=== PATIENT | male | born 1990 | race Caucasian/White ===

== ENCOUNTER 2023-05-15 15:02 | Observation (INO) ==
--- NOTE | 2023-05-15 15:23 | Emergency Department Note ---
Impression & Plan RLQ abdominal pain, Leukocytosis, Acute dehydration ED Provider Note CHIEF COMPLAINT: Abdominal pain HISTORY OF PRESENTING ILLNESS: This 33-year-old male patient presents to the emergency department with his for evaluation of right-sided abdominal pain. The symptoms started this morning. The patient states that he has had a "high fever" but did not check it. Also having some nausea and vomiting. Had 3 episodes of diarrhea today. Denies any urinary symptoms. Denies any previous abdominal surgeries or abdominal problems. Denies hematochezia, melena, hematuria, hemoptysis, or hematemesis. He rates the pain as 8/10. He has not taken anything for the symptoms yet. Denies chest pain, but sometimes feels SOB from the pain. Denies cough or URI symptoms. No known ill contacts. Has not eaten or drank anything yet today. REVIEW OF SYSTEMS: See HPI for pertinent positives and pertinent negatives. ALLERGIES: Honey bees MEDICATIONS: Medical Marijuana PAST MEDICAL HISTORY: Denies pertinent past medical or pertinent past surgical history PHYSICAL EXAM: VITALS: Vitals are noted on the nurse's note and reviewed by myself. GENERAL: Non toxic, no acute distress, non-diaphoretic. SKIN: No rash to the abdomen. Capillary refill <2 sec. EYES: PERRLA. EOMI. Conjunctivae without injection, sclerae without icterus. NOSE: Patent without discharge. MOUTH: Mucous membranes moist. Uvula midline. Airway patent. Pharynx without erythema, edema, or exudate. NECK: Supple without nuchal rigidity. No lymphadenopathy. HEART: Regular rate and rhythm without murmurs gallops or rubs. LUNGS: Clear to auscultation bilaterally without wheezes, rales or rhonchi. No retractions or accessory muscle use. ABDOMEN: Positive bowel sounds x 4. Normal tympanic percussion. Soft, diffusely tender to palpation in the central abdomen with maximal tenderness to palpation in the right lower quadrant. No masses or organomegaly. Briseno sign negative. No CVA tenderness. Mild guarding without rebound tenderness or rigidity. : Permission to perform the exam. The patient's was in the room for the exam. The patient declined an additional dewer. Bilateral testicles are descended. No testicular tenderness to palpation. No obvious masses or lesions of the testicles. Normal cremasteric reflex. No obvious hernias appreciated. No penile lesions noted. MUSCULOSKELETAL: No gross musculoskeletal defects. NEURO: Patient was alert and oriented. No focal neurological deficits. DIFFERENTIAL DIAGNOSIS: Differential diagnosis includes hepatitis, pancreatitis, cholecystitis, cholelithiasis, appendicitis, kidney stone, pyelonephritis, UTI, gastritis, gastroenteritis, mesenteric adenitis, obstruction, constipation, hernia, abdominal abscess, perforation, diverticulitis, IBD, ischemic colitis, abdominal aortic aneurysm, testicular torsion, prostatitis, or others. ED COURSE AND MEDICAL DECISION MAKING: MEDICATIONS GIVEN: 2.5 L normal saline solution bolus, Toradol 10 mg IV, Tylenol 1000 mg IV, Zofran 4 mg IV. Morphine 4 mg IV and Zofran 4 mg IV. INTERPRETATION OF LABS: I interpreted the labs with full lab results as below in the lab section of this note. White blood cell count elevated at 15.70. Hemoglobin normal at 17. Platelet count normal at 211. Glucose elevated at 133 and total bilirubin 1.5, but CMP otherwise normal. Lipase normal. Urinalysis with 1+ protein, 3+ ketones, and 1+ bilirubin, but no evidence for infection. COVID, influenza, and RSV were negative. INTERPRETATION OF IMAGING: Imaging studies were interpreted by myself and read by radiology as per the imaging section of this note. CT scan of the abdomen and pelvis with IV contrast was negative for acute appendicitis or other acute abnormalities. Right upper quadrant ultrasound was negative for acute abnormalities. Chest x-ray was negative for acute cardiopulmonary etiology. CONSULTATIONS: Dr. Werner of general surgery. On-call hospitalist. MDM SUMMARY: The patient was seen during a time of extreme volume and extreme acuity. Nursing triage protocols were initiated with IV lock, labs, and/or imaging studies conducted by protocol in the triage area. The patient was initially evaluated in a triage room and then re-examined once they were taken back to an exam room. White blood cell count is elevated at 15.70. CMP as above without significant abnormalities. COVID, influenza, and RSV were negative. Chest x- ray negative. The patient had 3+ ketones in his urine and was given 2 L of normal saline solution bolus, but he felt like he needed a little bit more fluid and was given another 500 mL of normal saline solution with improvement per patient. The patient felt better after the IV Toradol, IV Tylenol, morphine, and Zofran. However, he continued with right lower quadrant abdominal pain and stated that he just did not feel right. Due to the patient's history, right lower quadrant abdominal pain, leukocytosis, and concern for possible appendicitis I discussed the case with Dr. Cristofer Foley of general surgery who was in the emergency department evaluating another patient. Dr. Werner evaluated the patient in the emergency department prior to review the results of the CT scan. Please refer to her dictation for further details. The CT scan of the abdomen and pelvis was negative for acute appendicitis or other acute abnormalities. Surgery recommended right upper quadrant ultrasound which was also negative. The patient's testicular exam was negative for acute abnormalities and I do not feel testicular ultrasound is needed at this time. I spoke with surgery again in regards to the patient's negative workup, but continued right lower quadrant abdominal pain along with his leukocytosis and "not feeling right." She recommended the patient be admitted by medicine for monitoring of his white blood cell count and to have serial abdominal exams to determine if repeat imaging or repeat surgical consult is needed. I spoke with the on-call hospitalist who agreed to admit the patient for further management. Please refer to their dictation. The patient's care was transferred in stable condition. Stool studies were ordered, but the patient was unable to give a stool sample while in the emergency department. DIAGNOSIS: RLQ abdominal pain Leukocytosis Dehydration Past Med/Surg History Social History Smoking Status: Never smoker Feels Safe at Home: Yes Allergies Allergies Allergy/AdvReac Type Severity Reaction Status Date / Time pollen extracts Allergy Intermediate ITCHY Verified 05/15/23 16:20 EYES, SNEEZING, CONGESTION bee venom protein (honey bee) Allergy Mild EXTRA Verified 05/15/23 16:20 SWELLING AT SITES Home Meds Home Medications Medication Instructions Recorded Confirmed Medical Marijuana 1 dose inhalation DIRECTED PRN 05/15/23 05/15/23 NEEDED PER PT Results & Data (ED) Vital Signs Vital Signs - 24 hr 05/15/23 15:04 05/15/23 17:02 05/15/23 19:19 Temperature 36.3 C L Temperature Source Oral Pulse Rate 82 Pulse Rate [Finger] 79 65 Respiratory Rate 18 18 20 Respiratory Effort / Characteristics Non-Labored Spontaneous Respiratory Depth Normal Respiratory Pattern Regular Blood Pressure 122/78 Blood Pressure [Left Arm] 122/66 99/59 L Blood Pressure Mean 92 Blood Pressure Mean [Left Arm] 84 72 Blood Pressure Position Sitting Pulse Oximetry 100 97 97 Oxygen Delivery Method Room Air Room Air Sepsis Recent Fever Within 48 Hours No Sepsis New/Unexplained Change in Mental Status N/A Sepsis Action Taken by Nursing No Action Required Laboratory Data 05/15/23 15:13 05/15/23 15:13 Lab Results 05/15/23 05/15/23 05/15/23 Range/Units 13:11 15:13 Unknown WBC 15.70 H (4.8-10.8) K/ul RBC 5.48 (4.70-6.10) M/uL Hgb 17.0 (14.0-18.0) g/dl Hct 46.3 (42.0-52.0) % MCV 84.5 (80.0-100.0) fL MCH 31.0 (25.0-34.0) pg MCHC 36.7 H (32.0-36.0) g/dL RDW Std Deviation 35.1 L (36.4-46.3) fL RDW Coeff of Kat 11.6 (11.5-14.5) % Plt Count 211 (130-400) K/uL MPV 9.0 L (9.4-12.4) fL Immature Gran % (Auto) 0.8 % Neut % (Auto) 93.4 % Lymph % (Auto) 2.1 % [place] % (Auto) 3.3 % Eos % (Auto) 0.1 % Baso % (Auto) 0.3 % Neut # (Auto) 14.67 H (1.40-6.50) K/uL Lymph # (Auto) 0.33 L (1.20-3.40) K/uL [place] # (Auto) 0.52 (0.11-0.59) K/uL Eos # (Auto) 0.01 (0.00-0.50) K/uL Baso # (Auto) 0.04 (0.00-0.20) K/uL Immature Gran # (Auto) 0.13 (0.01-0.20) K/uL Sodium 142 (136-145) mmol/L Potassium 3.5 (3.5-5.1) mmol/L Chloride 105 (98-107) mmol/L Carbon Dioxide 26 (21-32) mmol/L Anion Gap 11 (3-11) BUN 17 (6-23) mg/dl Creatinine 0.72 (0.6-1.4) mg/dl Est Cr Clr Drug Dosing 177.7 ml/min Est GFR ( Amer) 144.1 ml/min Est GFR (Non-Af Amer) 124.3 ml/min BUN/Creatinine Ratio 23.6 H (10-20) Glucose 133 H (70-99(Fasting)) mg/dl Calcium 9.5 (8.6-10.3) mg/dl Total Bilirubin 1.5 H (0.2-1.0) mg/dl AST 22 (13-39) U/L ALT 20 (7-52) U/L Alkaline Phosphatase 63 (34-104) U/L Total Protein 7.6 (6.0-8.3) gm/dl Albumin 4.9 (3.4-5.0) gm/dl Globulin 2.7 (2.5-4.0) gm/dl Albumin/Globulin Ratio 1.8 (0.9-2) Lipase 12 (11-82) U/L Urine Color Dark Yellow Urine Appearance Slightly Cloudy (Clear) Urine pH 5.5 (4.5-7.5) Ur Specific [place] >= 1.030 (1.000-1.030) Urine Protein 1+ H (Negative) Urine Glucose (UA) Negative (Negative) Urine Ketones 3+ H (Negative) Urine Blood Negative (Negative) Urine Nitrite Negative (Negative) Urine Bilirubin 1+ H (Negative) Urine Urobilinogen Negative (Negative) Ur Leukocyte Esterase Negative (Negative) Urine RBC 0-4 (0-4) /hpf Urine WBC 0-5 (0-5) /hpf Ur Epithelial Cells 0-5 (0-5) /lpf Urine Bacteria Negative (Negative) Hyaline Casts 0-5 (0-5) /lpf SARS-CoV-2 (PCR) NEGATIVE (Negative) Influenza Type A (PCR) Negative (Neg) Influenza Type B (PCR) Negative (Neg) RSV (RT-PCR) Negative (Neg) Administered Medications Discontinued Medications Sodium Chloride (Nss) 1,000 mls @ 999 mls/hr IV .Q1H1M TANVI Stop: 05/15/23 17:45 Last Infusion: 05/15/23 16:44 Dose: Infused Documented By: Admin: 05/15/23 15:40 Dose: 999 mls/hr Documented By: Infusion: 05/15/23 15:40 Dose: Infused Documented By: Admin: 05/15/23 15:40 Dose: 999 mls/hr Documented By: GINNY Acetaminophen (Ofirmev) 1,000 mg in 100 mls @ 400 mls/hr IV NOW STA Stop: 05/15/23 15:45 Last Infusion: 05/15/23 16:43 Dose: Infused Documented By: Infusion: 05/15/23 16:43 Dose: Infused Documented By: Admin: 05/15/23 15:40 Dose: 400 mls/hr Documented By: GINNY Sodium Chloride (Nss) 500 mls @ 999 mls/hr IV .Q31M ONE Stop: 05/15/23 18:22 Last Infusion: 05/15/23 18:47 Dose: Infused Documented By: Admin: 05/15/23 17:59 Dose: 999 mls/hr Documented By: AMADEO Ioversol (Optiray 320 500ml) 86 ml IV ONCE ONE Stop: 05/15/23 16:28 Last Admin: 05/15/23 16:27 Dose: 86 ml Documented By: JUSTYNA Ketorolac Tromethamine (Ketorolac Tromethamine 15 Mg/Ml Vial) 10 mg IV NOW ONE Stop: 05/15/23 15:32 Last Admin: 05/15/23 15:40 Dose: 10 mg Documented By: GINNY Morphine Sulfate (Morphine Sulfate 4 Mg/Ml 1 Ml Carp\\Vial) 4 mg IV NOW STA Stop: 05/15/23 17:53 Last Admin: 05/15/23 17:59 Dose: 4 mg Documented By: AMADEO Ondansetron HCl (Ondansetron Inj 2 Mg/Ml 2 Ml Vial) 4 mg IV NOW STA Stop: 05/15/23 15:46 Last Admin: 05/15/23 15:49 Dose: 4 mg Documented By: GINNY Ondansetron HCl (Ondansetron Inj 2 Mg/Ml 2 Ml Vial) Confirm Administered Dose 4 mg .ROUTE .STK-MED ONE Stop: 05/15/23 15:46 Last Admin: 05/15/23 15:49 Dose: Not Given Documented By: GINNY Ondansetron HCl (Ondansetron Home Pack 4mg Od Tab) 1 each PO NOW ONE Stop: 05/15/23 18:41 Last Admin: 05/15/23 18:59 Dose: Not Given Documented By: CHIKIS Ondansetron HCl (Ondansetron Inj 2 Mg/Ml 2 Ml Vial) 4 mg IV NOW STA Stop: 05/15/23 19:10 Last Admin: 05/15/23 19:18 Dose: 4 mg Documented By: CHIKIS Imaging Data Radiologist's Impression: Abdomen/Pelvis CT 05/15/23 15:31 CT abd pelvis IV con only CLINICAL HISTORY: RLQ abdominal pain TECHNIQUE: Helical axial images of the abdomen and pelvis were obtained and displayed. Automated dose lowering techniques and/or adjustment according to patient size were utilized for this exam. This exam was performed with intravenous contrast. CT DOSE: 1286.46 mGy.cm COMPARISON: None available at the time of this dictation. FINDINGS: Lower chest: No acute abnormality. Liver: Unremarkable. No focal lesions are seen. Gallbladder and biliary tree: No calcified gallstones. Normal caliber wall. No intra- or extrahepatic biliary ductal dilation. Pancreas: Unremarkable, no focal lesions. Spleen: Unremarkable. Adrenals: Unremarkable. Kidneys and ureters: Unremarkable. Bladder: Unremarkable. Reproductive organs: Unremarkable. Bowel: The appendix is normal. A hiatal hernia is seen. Lymph nodes Retroperitoneal: Unremarkable. Pelvic: Unremarkable. Mesenteric: Unremarkable. Peritoneum: Normal. Vessels: Unremarkable. Abdominal wall: Unremarkable. Bones: Unremarkable. IMPRESSION: No acute abnormality, in particular the appendix is unremarkable. ACT 112: Negative or not required by law. Electronically signed by: Triston Mathias M.D. 05/15/2023 4:54 PM Gallbladder Ultrasound 05/15/23 16:59 US gallbladder CLINICAL HISTORY: RUQ abdominal pain, leukocytosis TECHNIQUE: Multiple real-time sonographic images of the right upper quadrant were obtained. Comparison: Comparison is made to CT abdomen pelvis 05/15/2023 FINDINGS: The liver is diffusely homogenous with normal contour and echogenicity. No focal mass lesions are seen. No intrahepatic ductal dilatation is seen. No gallstones or sludge are identified within the gallbladder. The gallbladder wall is not thickened. There is no pericholecystic fluid present. A sonographic Briseno's sign was not elicited by the bargain table clerk. The common duct measures 0.5 cm in diameter at the level of the hepatic artery. The visualized portions of the pancreas appear normal. The right kidney shows normal echogenicity, cortical thickness and renal contour. The right kidney shows no evidence of hydronephrosis or mass. No ascites or free fluid is seen in Leiva's pouch. IMPRESSION: Unremarkable right upper quadrant ultrasound. ACT 112: Negative or not required by law. Electronically signed by: Triston Mathias M.D. 05/15/2023 5:47 PM Chest X-Ray 05/15/23 17:01 XR chest 1V portable CLINICAL HISTORY: Sob, fever TECHNIQUE: Single frontal radiograph of the chest was obtained. Comparison: None available at the time of this dictation. FINDINGS: No lines and tubes are seen. The cardiomediastinal silhouette is normal. The lungs are clear. No evidence of pleural effusion or pneumothorax. IMPRESSION: No acute abnormalities and in particular no radiographic evidence of pneumonia. ACT 112: Negative or not required by law. Electronically signed by: Triston Mathias M.D. 05/15/2023 5:31 PM Discharge Plan Visit Data Chief Complaint: Abdominal Pain Stated Complaint: STOMACHE PAIN ED Provider: Renzo Stahl ED Midlevel Provider: Dorothy Hernandez Discharge Problem: RLQ abdominal pain, Leukocytosis, Acute dehydration Patient Disposition: Admitted As Inpatient Condition: Good Discharge Instructions Interventions: ED Discharge Assessment Last Done: 05/15/23 21:23 Forms Stand Alone Forms: [employer] Prescriptions Prescriptions: No Action Medical Marijuana 1 dose inhalation DIRECTED PRN (Reason: NEEDED PER PT) Referrals Referrals: Scott Maldonado MD [Primary Care Provider] - Discharge Problem: Leukocytosis Qualifiers: Leukocytosis type: unspecified Qualified Code(s): D72.829 - Elevated white blood cell count, unspecified
[2023-05-15 15:24] LABS: Appearance Urine Slightly Cloudy (Clear); Bilirubin Urine 1+ (Negative); Blood Urine Negative (Negative); Glucose Urine UA Negative (Negative); Ketones Urine 3+ (Negative); Leukocyte Esterase Urine Negative (Negative); Nitrite Urine Negative (Negative); Protein Urine 1+ (Negative); Specific Gravity Urine >= 1.030 (1.000-1.030); Urobilinogen Urine Negative (Negative); pH Urine 5.5 (4.5-7.5)
[2023-05-15 15:26] LABS: Color Urine Dark Yellow
[2023-05-15 15:29] LABS: Hematocrit (blood only) 46.3 % (42.0-52.0); Mean Corpuscular Hgb Conc 36.7 g/dL (32.0-36.0); Mean Corpuscular Volume 84.5 fL (80.0-100.0); Platelet Count 211 K/uL (130-400); RDW Coefficient of Variation 11.6 % (11.5-14.5); RDW Standard Deviation 35.1 fL (36.4-46.3); Red Blood Count 5.48 M/uL (4.70-6.10)
[2023-05-15 15:40] LABS: Bacteria Urine Negative (Negative); Epithelial Cell Urine 0-5 /lpf (0-5); Hyaline Casts Urine 0-5 /lpf (0-5); RBC Urine 0-4 /hpf (0-4); WBC Urine 0-5 /hpf (0-5)
[2023-05-15] MEDS: KETOROLAC TROMETHAMINE 15 MG/ML VIAL IV ONE (15:40)
[2023-05-15] MEDS: SODIUM CHLORIDE 0.9% 1,000 ML IV SCH (15:40)
[2023-05-15] MEDS: ACETAMINOPHEN 1,000 MG/100 ML VIAL IV STA (15:40)
[2023-05-15 15:47] LABS: Albumin Globulin Ratio 1.8 (0.9-2); Albumin Level 4.9 gm/dl (3.4-5.0); BUN Creatinine Ratio 23.6 (10-20); Bilirubin,Total 1.5 mg/dl (0.2-1.0); Calcium 9.5 mg/dl (8.6-10.3); Creatinine Clr Calc Pharmacy 177.7 ml/min; Est GFR (African American) 144.1 ml/min; Est GFR (Non-African American) 124.3 ml/min; Globulin 2.7 gm/dl (2.5-4.0); Potassium 3.5 mmol/L (3.5-5.1); Total Protein 7.6 gm/dl (6.0-8.3)
[2023-05-15] MEDS: ONDANSETRON INJ 2 MG/ML 2 ML VIAL IV STA ×2 (15:49→19:18)
[2023-05-15] MEDS: ONDANSETRON INJ 2 MG/ML 2 ML VIAL ONE (15:49)
[2023-05-15 15:54] LABS: Basophils # (auto) 0.04 K/uL (0.00-0.20); Basophils % (auto) 0.3 %; Eosinophils # (auto) 0.01 K/uL (0.00-0.50); Eosinophils % (auto) 0.1 %; Immature Granulocytes # (auto) 0.13 K/uL (0.01-0.20); Immature Granulocytes % (auto) 0.8 %; Lymphocytes # (auto) 0.33 K/uL (1.20-3.40); Lymphocytes % (auto) 2.1 %; Monocytes # (auto) 0.52 K/uL (0.11-0.59); Monocytes % (auto) 3.3 %; Neutrophils # (auto) 14.67 K/uL (1.40-6.50); Neutrophils % (auto) 93.4 %
[2023-05-15 16:01] LABS: Influenza A virus by PCR Negative (Neg); Influenza B virus by PCR Negative (Neg); RSV by PCR Negative (Neg); SARS CoV2 RNA(COVID-19) Ceph NEGATIVE (Negative)
[2023-05-15] MEDS: OPTIRAY 320 500ml IV ONE (16:27)
--- NOTE | 2023-05-15 16:49 | Surgery Consultation ---
Date of Consultation May 15, 2023 Assessment & Plan (1) Abdominal pain: Radiating to right lower quadrant (2) Vomiting: (3) Diarrhea: Plan No evidence for acute appendicitis on CT of the abdomen and pelvis or any other acute etiology to explain the patient's current symptoms. May consider a right upper quadrant ultrasound to further evaluate the gallbladder. If right upper quadrant ultrasound is negative, admit patient to medicine for observation with continued supportive care and repeat labs in the a.m. to monitor for resolution of leukocytosis. Would also obtain stool studies. Would keep the patient n.p.o. overnight if admission will be initiated. If the patient is no longer having nausea and vomiting by the a.m. may try to start on clear liquids and then advance as tolerated and follow-up with his PCP. History of Present Illness Reason for Consultation: Abdominal pain Attending Physician: Dr. Ruby Foley History of Present Illness Enmanuel is a 33-year-old male who presented to the emergency department with centralized to slightly right upper quadrant abdominal pain that began early this morning. He says he has had vomiting associated with this pain that was initially frothy and then turned bilious and appeared green along with nonbloody diarrhea. Episodes of vomiting have been a/w fevers and chills. Throughout the day he says this pain began to radiate to the right lower quadrant but has primarily remained in the mid to upper aspect of the abdomen. Miguel A says he has never had anything like this in the past although does recall having some GI upset during an episode of COVID 1 year ago. He initially attributed the abdominal pain due to an old sports hernia injury that was in similar location but noted that this pain felt quite different. In the ED he is afebrile and hemodynamically stable. He has a leukocytosis of 15,000, SARSCOV2 negative. CT A/P reveals no acute intra-abdominal findings. Particularly, negative for acute appendicitis and the gallbladder appears normal on CT with no calculi. At the time of my examination the patient stated he did feel better with IVF. Allergies Allergy/AdvReac Type Severity Reaction Status Date / Time pollen extracts Allergy Intermediate ITCHY Verified 05/15/23 16:20 EYES, SNEEZING, CONGESTION bee venom protein (honey bee) Allergy Mild EXTRA Verified 05/15/23 16:20 SWELLING AT SITES Home Medications Medication Instructions Recorded Confirmed Type Medical Marijuana 1 dose inhalation DIRECTED PRN 05/15/23 05/15/23 History NEEDED PER PT Patient History Social History Smoking Status: Never smoker Feels Safe at Home: Yes Review of Systems Constitutional: + fever, + chills, + sweats and + anorex ia Admits to nasal congestion for the past 2 weeks Respiratory: + dyspnea (Although thinks this may be s econdary to abdominal pain); no cough, no chest congestion and no wheezing Genitourinary: no dysuria, no difficulty urinating, no urinary frequency or no urinary incontinence Physical Exam Constitutional: average body habitus and healthy appearing; not ill appearing, not in distress and not diaphoretic Respiratory: normal respiratory effort; no respiratory distress, no labored breathing and does not use accessory muscles Cardiovascular: Rate/Rhythm: regular rate; not tachycardic Gastrointestinal (Abdomen): Abdomen is soft. Nondistended Mid to right upper quadrant tenderness to palpation Mild TTP at RLQ There is a negative Rovsing sign and a negative psoas sign Results & Data Vital Signs (Past 12 Hours) Vital Signs Temp Pulse Resp BP Pulse Ox O2 Del Method 05/15/23 15:04 36.3 C L 82 18 122/78 100 Room Air Laboratory Results WBC 15,000 SARS Cov-2 negative by PCR Diagnostic Findings CT a/P: FINDINGS: Lower chest: No acute abnormality. Liver: Unremarkable. No focal lesions are seen. Gallbladder and biliary tree: No calcified gallstones. Normal caliber wall. No intra- or extrahepatic biliary ductal dilation. Pancreas: Unremarkable, no focal lesions. Spleen: Unremarkable. Adrenals: Unremarkable. Kidneys and ureters: Unremarkable. Bladder: Unremarkable. Reproductive organs: Unremarkable. Bowel: The appendix is normal. A hiatal hernia is seen. Lymph nodes Retroperitoneal: Unremarkable. Pelvic: Unremarkable. Mesenteric: Unremarkable. Peritoneum: Normal. Vessels: Unremarkable. Abdominal wall: Unremarkable. Bones: Unremarkable. IMPRESSION: No acute abnormality, in particular the appendix is unremarkable. ACT 112: Negative or not required by law. Electronically signed by: Triston Mathias M.D. 05/15/2023 4:54 PM PG Care Time/CCT Total # of Minutes Spent Total Time Spent with Patient: Total time spent is greater than 50% in coordination of care (as documented) at patient's floor/unit and/or counseling patient: [place] [address] OFFICE CONSULT LVL M Patient Type New History Detailed Exam Expanded Problem Focused Medical Decision Making Low Complexity Diagnoses Right upper quadrant abdominal pain R10.11 Abdominal location: right upper quadrant Vomiting R11.10 Vomiting type: bilious vomiting Diarrhea, unspecified type R19.7 Diarrhea type: unspecified type (1) Abdominal pain Abdominal location: right upper quadrant Qualified Code(s): R10.11 - Right upper quadrant pain (2) Vomiting Vomiting type: bilious vomiting (3) Diarrhea Diarrhea type: unspecified type Qualified Code(s): R19.7 - Diarrhea, unspecified
--- NOTE | 2023-05-15 16:55 | CT Scan Report ---
CT abd pelvis IV con only CLINICAL HISTORY: RLQ abdominal pain TECHNIQUE: Helical axial images of the abdomen and pelvis were obtained and displayed. Automated dose lowering techniques and/or adjustment according to patient size were utilized for this exam. This e xam was performed with intravenous contrast. CT DOSE: 1286.46 mGy.cm COMPARISON: None available at the time of this dictation. FINDINGS: Lower chest: No acute abnormality. Liver: Unremarkable. No focal lesions are seen. Gallbladder and biliary tree: No calcified gallstones. Normal caliber wall. No intra- or extrahepatic biliary ductal dilation. Pancreas: Unremarkable, no focal lesions. Spleen: Unremarkable. Adrenals: Unremarkable. Kidneys and ureters: Unremarkable. Bladder: Unremarkable. Reproductive organs: Unremarkable. Bowel: The appendix is normal. A hiatal hernia is seen. Lymph nodes Retroperitoneal: Unremarkable. Pelvic: Unremarkable. Mesenteric: Unremarkable. Peritoneum: Normal. Vessels: Unremarkable. Abdominal wall: Unremarkable. Bones: Unremarkable. IMPRESSION: No acute abnormality, in particular the appendix is unremarkable. ACT 112: Negative or not required by law. Electronically signed by: Triston Mathias M.D. 05/15/2023 4:54 PM
--- NOTE | 2023-05-15 17:33 | XRay Report ---
XR chest 1V portable CLINICAL HISTORY: Sob, fever TECHNIQUE: Single frontal radiograph of the chest was obtained. Comparison: None available at the time of this dictation. FINDINGS: No lines and tubes are seen. The cardiomediastinal silhouette is normal. The lungs are clear. No evid ence of pleural effusion or pneumothorax. IMPRESSION: No acute abnormalities and in particular no radiographic evidence of pneumonia. ACT 112: Negative or not required by law. Electronically signed by: Triston Mathias M.D. 05/15/2023 5:31 PM
--- NOTE | 2023-05-15 17:48 | Ultrasound Report ---
US gallbladder CLINICAL HISTORY: RUQ abdominal pain, leukocytosis TECHNIQUE: Multiple real-time sonographic images of the right upper quadrant were obtained. Comparison: Comparison is made to CT abdomen pelvis 05/15/2023 FINDINGS: The liver is diffusely homogenous with normal contour and echogenicity. No focal mass lesions are see n. No intrahepatic ductal dilatation is seen. No gallstones or sludge are identified within the g allbladder. The gallbladder wall is not thickened. There is no pericholecystic fluid present. A sonog raphic Briseno's sign was not elicited by the telephone operator. The common duct measures 0.5 cm in diamet er at the level of the hepatic artery. The visualized portions of the pancreas appear normal. The right kidney shows normal echogenicity, cortical thickness and renal contour. The right kidney sh ows no evidence of hydronephrosis or mass. No ascites or free fluid is seen in Leiva's pouch. IMPRESSION: Unremarkable right upper quadrant ultrasound. ACT 112: Negative or not required by law. Electronically signed by: Triston Mathias M.D. 05/15/2023 5:47 PM
[2023-05-15] MEDS: SODIUM CHLORIDE 0.9% 500 ML IV ONE (17:59)
[2023-05-15] MEDS: MoRPHine SULFATE 4 MG/ML 1 ML CARP\\VIAL IV STA (17:59)
[2023-05-15] MEDS: ONDANSETRON HOME PACK 4MG OD TAB PO ONE (18:59)
--- OUTSIDE RECORDS SUMMARY | 2023-05-15 19:20 | External Medical Summary | Summary of Care ---
Author Name Unknown Organization [facility] Address [address] [place] [address] Phone [phone] Care Team Providers Care Molecular Physicist Name Role Phone Neto Yoder MD Primary Care Provider [phone] Reason for Visit * Reason Onset Date Comments Appointment 04/17/2023 Encounter Details Date Type Department Care Team ([facility] st Contact Info) Description 04/17/2023 Telephone [address] [facility] ([place], [place]) [place] [address] Socrates Cabrera CRNP [address] [facility] [place] [address] Appointment Allergies Active Allergy Reactions Criticality Noted Date Comments Bee Stings 12/21/1997 swelling/breathing problems documented as of this encounter (statuses as of 04/17/2023) Medications Medication Sig Dispensed Refills Start Date End Date Status MULTIVITAMINS PO TABS 1 daily 0 Act colby Lidocaine Viscous HCl 2 % Mouth/Throat Solution Swish and spit 4x a day as needed for sore throat 100 mL 0 09/18/2022 Active documented as of this encounter (statuses as of 04/17/2023) Active Problems Problem Noted Date Diagnosed Date Overweight (BMI 25.0-29.9) 06/21/2022 Medical marijuana use 06/21/2022 JEFFERY (generalized anxiety disorder) 01/10/2020 documented as of this encounter (statuses as of 04/17/2023) Resolved Problems Problem Noted Date Diagnosed Date Resolved Date History of IBS 12/28/2017 02/10/2019 Spermatocele of epididymis, single 12/28/2017 02/10/2019 Other allergic rhinitis 03/08/200410/06 Overview: ICD-10 update of inactive term documented as of this encounter (statuses as of 04/17/2023) Immunizations Name Administration Dates Next Due H1N1 2009 Influenza, IM 2009 HEP A - Hepatitis A (Adult > 18 yrs) 12/17/2012 HPV Vaccine, 4-Valent 12/17/2012 HPV Vaccine, 9-Valent 09/19/2017,08/22/2016 Hep A - Hepatitis A (ped/adole, 1-18 Yrs) 2005 Meningococcal Conjugate Vaccine (Menactra/Menveo ) 12/17/2012 PPD 03/14/2018 Seasonal Influenza, PF, 6 M & above, IM , (FluLaval or Fluzone) 01/28/2020 Seasonal Influenza, Split, IIV3, With Preserve, Inj 03/20/2008 TDAP (age 10 and older)(Boostrix) 08/05/2015 TDAP (age 11 and older)(Adacel) 11/22/2005 documented as of this encounter Social History Tobacco Use Types Packs/Day Years Used Date Smoking Tobacco: Never Smokeless Tobacco: Never Alcohol Use Standard Drinks/Week Comments Yes 0 (1 standard drink = 0.6 oz pur e alcohol) occasionally PHQ-2 Answer Date Recorded PHQ-2 Score 2 02/07/2019 Sex and Gender Information Value Date Recorded Sex Assigned at Not on file Gender Identity Not on file Sexual Orientation Not on file Job Start Date Occupation Industry Not on file Not on file Not on file documented as of this encounter Miscellaneous Notes * Telephone Encounter - Meliza Ramírez OSA - 04/17/2023 10:06 AM EST Lmom to call back or use portal to schedule with Provider Rick documented in this encounter Plan of Treatment Health Maintenance Due Date Last Done Comments COVID-19 Vaccine (#1) 1992 Hepatitis C Screening 2010 Depression Screening 02/08/2020 02/07/2019, 09/20/19 18 Influenza Vaccine (FLU shot) (#1) 2023 01/28/2020, 2009, 03/20/2008 DTaP,Tdap,and Td Vaccines (8 - Td or Tdap) 08/04/2025 08/05/2015, 11/22/2005, 08/18/1996, Additional history exists Hepatitis B Completed 09/07/1998, 01/06, 11/24/1997 MENINGOCOCCAL (MENACTRA/MENVEO) Aged Out 12/17/2012 No longer eligible based on patient's age to complete this topic GARDASIL-HPV IMMUNIZATION SERIES Completed 09/19/2017, 08/22/2016, 12/17/2012 Pneumococcal Vaccine: Pediatrics (0 to 5 Years) and At-Risk Patients (6 to 64 Years) Aged Out No longer eligible based on patient's age to complete this topic documented as of this encounter Medical Devices Not on filedocumented as of this encounter Care Teams Molecular Physicist Relationship Specialty Start Date End Date Neto Yoder MD [address] [place] [address] PCP - General Family Medicine 07/16/18 documented as of this encounter
--- OUTSIDE RECORDS SUMMARY | 2023-05-15 19:20 | External Medical Summary | Summary of Care ---
Author Name Unknown Organization [facility] Address [address] [place] [address] Phone [phone] Care Team Providers Care Boot And Shoe Laborer Name Role Phone Neto Yoder MD Primary Care Provider [phone] Reason for Visit * Reason Comments Anxiety * - Authorized Specialty Diagnoses / Procedures Referred By Aubree t Referred To Contact Referral ID Status Reason Start Date Expiration Date V isits Requested Visits Authorized [id number] Authorized 07/05/2023 999 999 Encounter Details Date Type Department Care Team Description 11/28/2022 Office Visit [address] [place] [address] Socrates Cabrera CRNP [address] [place] [facility] [place] [address] Panic disorder* Allergies Active Allergy Reactions Severity Noted Date Comments Bee Stings 12/21/1997 swelling/breathing problems documented as of this encounter (statuses as of 11/28/2022) Medications Medication Sig Dispensed Refills Start Date End Date Status MULTIVITAMINS PO TABS 1 daily 0 Act colby Lidocaine Viscous HCl 2 % Mouth/Throat Solution Swish and spit 4x a day as needed for sore throat 100 mL 0 09/18/2022 Active documented as of this encounter (statuses as of 11/28/2022) Active Problems Problem Noted Date Overweight (BMI 25.0-29.9) 06/21/2022 Medical marijuana use 06/21/2022 JEFFERY (generalized anxiety disorder) 01/09 documented as of this encounter (statuses as of 11/28/2022) Resolved Problems Problem Noted Date Resolved Date History of IBS 12/28/2017 02/10/2019 Spermatocele of epididymis, single 12/28/2017 02/10/2019 Other allergic rhinitis 03/08/2004 11/01/19 17 Overview: ICD-10 update of inactive term documented as of this encounter (statuses as of 11/28/2022) Immunizations Name Administration Dates Next Due DTP Vaccine 1992,1992,1992 DTWP - Dipth/Tet/Whole Cell Pertussis 1992 ,1992,1992 DTaP - Dipth/Tet/Acell Pertussis 08/18/1996,10/05 H1N1 2009 Influenza, IM 2009 HEP A - Hepatitis A (Adult > 18 yrs) 12/17/2012 HPV Vaccine, 4-Valent 12/17/2012 HPV Vaccine, 9-Valent 09/19/2017,08/22/2016 Haemophilus B (HIB) 10/17/1993, 3,1992,06/29 Hep A - Hepatitis A (ped/ado le, 1-18 Yrs) 11/22/2005 Hepatitis B, 0-19 yrs 09/07/1998,02/01/1998,11/05 MMR - Measles/Mumps/Rubella Vaccine 08/18/1996,0 10/17/1993 Meningococcal Conjugate Vacc ine (Menactra/Menveo) 12/17/2012 OPV - Polio Virus Vaccine (Oral) 997,10/17/1993,1992,06/29 PPD 03/14/2018,03/16/1993 Seasonal Influenza, Quadriva lent, No Preserve, 6 Mons & Above, IM 01/28/2020 Seasonal Influenza, Split, I IV3, With Preserve, Inj 03/20/2008 TDAP (age 10 and older)(Boostrix) 08/05/2015 TDAP (age 11 and older)(Adacel) 11/22/2005 documented as of this encounter Social History Tobacco Use Types Packs/Day Years Used Date Smoking Tobacco: Never Smokeless Tobacco: Never Alcohol Use Standard Drinks/Week Comments Yes 0 (1 standard drink = 0.6 oz pur e alcohol) occasionally Sex Assigned at Date Recorded Not on file Job Start Date Occupation Industry Not on file Not on file Not on file documented as of this encounter Progress Notes * DANYELLE Araya - 11/28/2022 9:31 AM EDT Patient Location: CLINIC PSYCHOTHERAPY & MEDICATION MANAGEMENT RETURN VISIT NOTE Psychiatry, [facility] [address] [place] [address] 11/28/2022 Enmanuel Pablo CHIEF COMPLAINT: Anxiety INTERVAL HISTORY: Enmanuel Pablo is a 32 year old male presenting today for a follow-up appointment. He is interested in in discussing anger, frustration, stemming from expectations or preconceived notions of what he expects/wants vs what is happening, and why. May contribute to a general sense of unease / frustration. Exploring reflexive reactions to situations vs re-framing and working developing a different mindset or response to situations. Exploring aspects of control, and how a sense of control is both psychologically healthy but not realistic in many situations. Strongly identifies with feeling overly active and compelled to do things, as if driven by a motor as would be worded in adult ADHD questionnaire. He did not bring this up himself, but did liken his restlessness as if the "low hum of a motor." MEDICATION SIDE EFFECTS: n/a OBJECTIVE DATA: COLUMBIA-SUICIDE SEVERITY RATING SCALE: - Have you ever wished that you were , or not alive anymore?denies - Have you actually had thoughts about killing yourself?denies - Have you been thinking about how you might do this?denies - Have you had these thoughts and had some intention of acting on them?denies - Have you started to work out or worked out the details of how to kill yourself?denies - Do you intend to carry out this plan?denies - Have you done anything, started to do anything, or prepared to do anything to end your life?denies Low Risk: Reviewed a crisis plan with patient including calling the suicide hotline, calling their local crisis number, using the crisis text line, or calling the department of psychiatry phone number. Discussed risks/protective factors and reasons for living. ROS EXAM: Negative except as described above SUBSTANCE USE:Medical cannabis daily for anxiety "it slows my brain down to the rest of reality around me" Alcohol 1-2 beers per week Denies otherwise RELEVANT CHANGES IN PAST PSYCHIATRIC, MEDICAL, FAMILY OR SOCIAL HX: As described above CURRENT MEDS: Current Outpatient Medications Medication Sig Dispense Refill MULTIVITAMINS PO TABS 1 daily Lidocaine Viscous HCl 2 % Mouth/Throat Solution Swish and spit 4x a day as needed for sore throat 100 mL 0 No current facility-administered medications for this visit. ALLERGIES: Review of patient's allergies indicates: Allergen Reactions Bee Stings swelling/breathing problems RECENT LABORATORY DATA: Parainfluenza Virus 2 + MENTAL STATUS EXAMINATION: Appearance:age-appropriate and casually dressed Muscle strength/tone and motor behavior:normal muscle strength and tone Gait and Station: no abnormalities noted and not tested Personal Presentation:candid and cooperative. Speech: normal, rate, tone and volume Mood:anxious and sad Affect: type - euthymic; range - full range; lability - no Associations:intact Thought Process:goal directed Abstract Reasoning: intact Thought Content:denies suicidal ideations, homicidal ideations, auditory hallucinations, visualhallucinations, delusions, impulsivity to act out or preoccupation with violence Orientation: alert and oriented to person, place, time and situation Recent and remote memory as evidenced by recall of recent circumstances and remote life events: intact Language as evidenced by ability to repeat phrase and name object: intact Fund of knowledge as evidenced by vocabulary and current/historical events: intact Attention span/concentration as evidenced by: ability to sustain attention to examiner - intact andfollowing conversation - intact Insight:good Judgment:good FORMULATION: Enmanuel Pablo is a 32 year old male with presenting symptoms ofadjustment disorder with anxious mood.Has long done well in interactions with neuro-divergent peers including ADHD/ASD and is interested in exploring these symptoms and others within himself. Several stressors/losses in the past few years including loss of both his best friend to suicide and his mother to cancer, and COVID stressors generally. Uses medical marijuana daily for anxiety. Denies previous psychiatric history including inpatient treatment or suicide attempt. 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 ASSESSMENT - DIAGNOSIS: -Panic Disorder PLAN: -Will continue to explore symptoms and any recommended treatments with further exploration at future appointments - Encourage outpatient therapy to further explore symptoms and appropriate coping strategies Crisis Planning: Enmanuel Pablo has been provided with Psychiatry emergency telephone numbers, including crisis number, text suicide hotline and suicide hotline. The crisis plan was reviewed and updated if necessary based on the information above. Side effects of the medication were explained, and the patient understands the risks and benefits of using the medication.Patient cautioned not to drive, operate heavy machinery, or participate in other tasks requiring full cognitive alertness until they know how new medications will affect them. Pt encouraged to keep all medications out of the reach of children. Psychoeducation was provided. Discussed risks, expected benefits, and potential adverse effects from these medications. The benefits outweigh the risks.The patient participated in the development of the treatment plan, verbalized understanding, voices no concerns and is agreeable to the treatment plan. Risk Assessment: Risk assessment was performed for Enmanuel Pablo. This is a patient being treated for chronic mental health conditions as characterized above; at the time of this visit, there wasno indication that this patient was either a risk to self, others, or gravely disabled by symptoms of a mental illness. At the time of this evaluation, there were enough protective factors in place and it was deemed safe to continue with treatment on a outpatient basis with return to clinic in the timeframe described above. Health Maintenance: Enmanuel Pablo was encouraged to keep up to date on regular health maintenance per her primary care provider. Encouraged to keep active in productive hobbies and exercise. Thishelps manage emotions, improve sleep, wellbeing and overall health. Pt was cautioned to not drink alcohol or use illicit drugs as these can make mood symptoms worse by blocking the effects of prescribed medications. Avoid tobacco, which contains nicotine. Limit caffeine use. Caffeine and Nicotine are stimulants that can cause difficulty with sleep. Lack of sleep can then worsen anxiety and depression. Return in 4 weeks or sooner as needed. Time Spent on Visit total: 30 minutes - including preparing to see the patient, reviewing history, performing evaluation, counseling/educating patient, ordering medications/tests, documenting clinical information. 25 minutes was spent on counseling including active listening, supportive therapy, self-care, and reflection Socrates Cabrera, MSN, SAND M[employer] OPERATOR C[employer] SAND, PMHNP- Nurse Practitioner - Outpatient Psychiatry [facility] - [place] 11/28/2022 documented in this encounter Plan of Treatment Upcoming Encounters Date Type Specialty Care Team Description 01/02/2023 Office Visit Psychiatry Socrates Cabrera CRNP [address] [place] [address] Health Maintenance Due Date Last Done Comments COVID-19 Vaccine (#1) 1992 Hepatitis C Screening 2010 Depression Screening, Annual for Pts 12 and Over 02/08/2020 02/07/2019, 09/19/2017 Influenza Vaccine (FLU shot) (#1) 2023 01/28/2020, [...] Not on filedocumented as of this encounter Visit Diagnoses Diagnosis Panic disorder- Primary Panic disorder without agoraphobia documented in this encounter Care Teams Boot And Shoe Laborer Relationship Specialty Start Date End Date Neto Yoder MD [address] [place] [address] PCP - General Family Medicine 07/16/18 documented as of this encounter
--- OUTSIDE RECORDS SUMMARY | 2023-05-15 19:20 | External Medical Summary | Summary of Care ---
Author Name Unknown Organization [facility] Address [address] [place] [address] Phone [phone] Care Team Providers Care Simplex Printer Installer Name Role Phone Neto Yoder MD Primary Care Provider [phone] Reason for Visit * Reason Comments Anxiety * - Authorized Specialty Diagnoses / Procedures Referred By Aubree t Referred To Contact Referral ID Status Reason Start Date Expiration Date V isits Requested Visits Authorized [id number] Authorized 07/05/2023 999 999 Encounter Details Date Type Department Care Team Description 01/02/2023 Office Visit [address] [place] [address] Socrates [facility]rera [facility] [address] [facility] [address] Panic disorder*; Major depressive disorder, recurrent episode, moderate (HCC) Allergies Active Allergy Reactions Severity Noted Date Comments Bee Stings 12/21/1997 swelling/breathing problems documented as of this encounter (statuses as of 01/02/2023) Medications Medication Sig Dispensed Refills Start Date End Date Status MULTIVITAMINS PO TABS 1 daily 0 Act colby Lidocaine Viscous HCl 2 % Mouth/Throat Solution Swish and spit 4x a day as needed for sore throat 100 mL 0 09/18/2022 Active documented as of this encounter (statuses as of 01/02/2023) Active Problems Problem Noted Date Overweight (BMI 25.0-29.9) 06/21/2022 Medical marijuana use 06/21/2022 JEFFERY (generalized anxiety disorder) 01/09 documented as of this encounter (statuses as of 01/02/2023) Resolved Problems Problem Noted Date Resolved Date History of IBS 12/28/2017 02/10/2019 Spermatocele of epididymis, single 12/28/2017 02/10/2019 Other allergic rhinitis 03/08/2004 11/01/19 17 Overview: ICD-10 update of inactive term documented as of this encounter (statuses as of 01/02/2023) Immunizations Name Administration Dates Next Due H1N1 2009 Influenza, IM 2009 HEP A - Hepatitis A (Adult > 18 yrs) 12/17/2012 HPV Vaccine, 4-Valent 12/17/2012 HPV Vaccine, 9-Valent 09/19/2017,08/22/2016 Hep A - Hepatitis A (ped/adole, 1-18 Yrs) 2005 Meningococcal Conjugate Vaccine (Menactra/Menveo ) 12/17/2012 PPD 03/14/2018 Seasonal Influenza, PF, 6 mo ns & Above, IM , (Flulaval) 01/28/2020 Seasonal Influenza, Split, IIV3, With Preserve, [...] encounter Progress Notes * DANYELLE Araya - 01/02/2023 9:33 AM EDT Patient Location: HOME. After connecting through [employer], patient was verified with two unique identifiers. Patient (or authorized legal goodwill representative) was then informed that this was a Telemedicine visit and being conducted confidentially over secure lines. Methods to assure confidentiality were taken. Patient acknowledged consent and understanding of privacy and security of the Telemedicine visit. The patient agreed to participate. PSYCHOTHERAPY & MEDICATION MANAGEMENT RETURN VISIT NOTE Psychiatry, [facility] [address] [place] [address] 01/02/2023 Enmanuel Pablo CHIEF COMPLAINT: Anxiety INTERVAL HISTORY: Enmanuel Pablo is a 32 year old male presenting today for a follow-up appointment. Pt discusses his repsonse to questions on the MDQ/JEFFERY questionnaires, stating for most of the symptoms in the questions he experiences them for more than half the days. Depressive Symptoms (SIGECAPS): - Sleep Disturbance: yes - both onset and frequent awakenings, vivid dreams "sometimes they're nightmares, but a lot of them are lucid" waking with "wave" of analyzing / overanalyzing, denies r/t trauma - Anhedonia: yes "it's like a constant struggle with that" relates this to struggling with transitions - Guilt or Hopelessness: yes - guilt, however "I constantly see hope.. I just get disappointed" - Decreased Energy: yes - Impaired Focus/Concentration: yes - Altered Appetite/Weight Changes: yes - decreased, often linked with anxiety - Psychomotor Changes: yes - slowed - Suicidal Thoughts: denies - Onset, Trajectory, Duration, Seasonal Component - Fall months, anniversaries of losses Elysia/Hypomania Symptoms: denies Obsessive-Compulsive Symptoms: unclear - multiple tangential / interconnected worries and thought processes, the process itself may be compulsive MEDICATION SIDE EFFECTS: n/a OBJECTIVE DATA: COLUMBIA-SUICIDE SEVERITY RATING SCALE: - Have you ever wished that you were , or not alive anymore? denies - Have you actually had thoughts about killing yourself? denies - Have you been thinking about how you might do this? denies - Have you had these thoughts and had some intention of acting on them? denies - Have you started to work out or worked out the details of how to kill yourself? denies - Do you intend to carry out this plan? denies - Have you done anything, started to do anything, or prepared to do anything to end your life? denies Low Risk: Reviewed a crisis plan with patient including calling the suicide hotline, calling their local crisis number, using the crisis text line, or calling the department of psychiatry phone number. Discussed risks/protective factors and reasons for living. ROS EXAM: Negative except as described above SUBSTANCE USE: Medical cannabis daily for anxiety "it slows my [...] Bee Stings swelling/breathing problems RECENT LABORATORY DATA: none MENTAL STATUS EXAMINATION: Appearance: age-appropriate and casually dressed Muscle strength/tone and motor behavior: normal muscle strength and tone Gait and Station: no abnormalities noted and not tested Personal Presentation: candid and cooperative. Speech: normal, rate, tone and volume Mood: anxious and sad Affect: type - euthymic; range - full range; lability - no Associations: intact Thought Process: goal directed Abstract Reasoning: intact Thought Content: denies suicidal ideations, homicidal ideations, auditory hallucinations, visual hallucinations, delusions, impulsivity to act out or preoccupation [...] examiner - intact andfollowing conversation - intact Insight: good Judgment: good FORMULATION: Enmanuel Pablo is a 32 year old male with presenting symptoms of adjustment disorder with anxious mood. Has long done well in interactions with neuro-divergent [...] he grew up in. ASSESSMENT - DIAGNOSIS: - Panic Disorder - MDR, moderate, with mixed features - Differential includes OCD PLAN: - Will continue to explore symptoms and any recommended [...] then worsen anxiety and depression. Return in 3 months or sooner as needed. Time Spent on Visit total: 30 minutes - including preparing to see the patient, reviewing history, performing evaluation, counseling/educating patient, ordering medications/tests, documenting clinical information. 25 minutes was spent on counseling including active listening, supportive therapy, self-care, and reflection Socrates Cabrera MSN, CRYSTALLOGRAPHER, PMHNP- Nurse Practitioner - Outpatient Psychiatry [facility] - [place] 01/02/2023 documented in this encounter Plan of Treatment [...] Panic disorder- Primary Panic disorder without agoraphobia Major depressive disorder, recurrent episode, moderate (HCC) Major depressive disorder, recurrent episode, moderate documented in this encounter Care Teams Simplex Printer Installer Relationship Specialty Start Date End Date Neto Yoder MD [address] [facility] [place] [address] PCP - General Family Medicine 07/16/18 documented as of this encounter
--- OUTSIDE RECORDS SUMMARY | 2023-05-15 19:20 | External Medical Summary | Summary of Care ---
Author Name Unknown Organization [facility] Address [address] [place] [address] Phone [phone] Care Team Providers Care Edm Operator Name Role Phone Neto Yoder MD Primary Care Provider [phone] Reason for Visit * Reason Comments Anxiety * - Authorized Specialty Diagnoses / Procedures Referred By Aubree t Referred To Contact Referral ID Status Reason Start Date Expiration Date V isits Requested Visits Authorized [id number] Authorized 07/05/2023 999 999 Encounter Details Date Type Department Care Team Description 11/28/2022 Office Visit [facility] [place] [address] Socrates Cabrera CRNP [address] [place] [address] Panic disorder* Allergies Active Allergy Reactions Severity [...] 11/28/2022) Immunizations Name Administration Dates Next Due H1N1 2009 Influenza, IM 2009 HEP A - Hepatitis A (Adult > 18 yrs) 12/17/2012 HPV Vaccine, 4-Valent 12/17/2012 HPV Vaccine, 9-Valent 09/19/2017,08/22/2016 Hep A - Hepatitis A (ped/adole, 1-18 Yrs) 2005 Meningococcal Conjugate Vaccine (Menactra/Menveo ) 12/17/2012 PPD 03/14/2018 Seasonal Influenza, Quadriva lent, No Preserve, 6 Mons & Above, IM 01/28/2020 Seasonal Influenza, Split, IIV3, With Preserve, [...] - 11/28/2022 9:31 AM EDT Patient Location: HOME. After connecting through televideo, patient was verified with two unique identifiers. Patient (or authorized legal civil rights representative) was then informed that this was a Telemedicine visit and being conducted confidentially over secure lines. Methods to assure confidentiality were taken. Patient acknowledged consent and understanding of privacy and security of the Telemedicine visit. The patient agreed to participate. PSYCHOTHERAPY & MEDICATION MANAGEMENT RETURN VISIT NOTE Psychiatry, [facility] [address] [place] [address] 11/28/2022 Enmanuel Pablo CHIEF COMPLAINT: Anxiety INTERVAL [...] therapy, self-care, and reflection Socrates Cabrera MSN, DANYELLE, PMHNP- Nurse Practitioner - Outpatient Psychiatry [facility] - [place] 11/28/2022 documented in this encounter Plan of Treatment Upcoming Encounters Date Type Specialty Care Team Description 01/02/2023 Office Visit Psychiatry Socrates Cabrera CRNP [address] [place] [address] Health Maintenance Due Date Last Done Comments [...] agoraphobia documented in this encounter Care Teams Edm Operator Relationship Specialty Start Date End Date Neto Yoder MD [address] [place] [address] PCP - General Family Medicine 07/16/18 documented as of this encounter
--- NOTE | 2023-05-15 20:31 | History & Physical Report ---
Date of Service May 15, 2023 Assessment & Plan (1) Abdominal pain: Plan: 33-year-old male with past medical history significant for generalized anxiety disorder, medical marijuana use, presents with right-sided abdominal pain starting today morning. Patient states he woke up around 6 AM with severe right-sided abdominal pain thought it will subside but it has been constant since then. Pain is anywhere from 6-9/10 in severity. Radiating to his right groin region. Associated with several episodes of nausea and vomitings and diarrhea. No blood in the vomiting or stools. Also had temperature. Having shaking chills. Has some headache. Has mild congestion and cough. No chest pain.Not able to take deep breath because of pain. Did not eat any outside food. Right-sided abdominal pain Leukocytosis Fever as per patient Having shaking chills CT abdomen pelvis okay Gallbladder ultrasound okay will follow stool studies Will keep him n.p.o. IV fluids IV antiemetics as needed IV pain meds as needed Follow repeat labs in a.m. Surgery consulted DVT prophylaxis SCDs Disposition Medical floor Full code History of Present Illness Chief Complaint: Right-sided abdominal pain Primary Care Provider: Scott Maldonado MD 33-year-old male with past medical history significant for generalized anxiety disorder, medical marijuana use, presents with right-sided abdominal pain starting today morning. Patient states he woke up around 6 AM with severe right-sided abdominal pain thought it will subside but it has been constant since then. Pain is anywhere from 6-9/10 in severity. Radiating to his right groin region. Associated with several episodes of nausea and vomitings and diarrhea. No blood in the vomiting or stools. Also had temperature. Having shaking chills. Has some headache. Has mild congestion and cough. No chest pain.Not able to take deep breath because of pain. Did not eat any outside food. Past medical history. As mentioned above Past surgical history. Colonoscopy. Right partial palmar fasciectomy. Right repair of extensor tendon. Social history. No smoking. Alcohol occasional. No drug use. Family history. Father has IBS. Sister has IBS. Allergies Allergy/AdvReac Type Severity Reaction Status Date / Time pollen extracts Allergy Intermediate ITCHY Verified 05/15/23 16:20 EYES, SNEEZING, CONGESTION bee venom protein (honey bee) Allergy Mild EXTRA Verified 05/15/23 16:20 SWELLING AT SITES Home Medications Medication Instructions Recorded Confirmed Type Medical Marijuana 1 dose inhalation DIRECTED PRN 05/15/23 05/15/23 History NEEDED PER PT Past Med/Surg History Social History Smoking Status: Never smoker Second Hand Exposure: No; Do You Dip or Chew Tobacco: No; Tobacco Cessation Education Requested by Patient: No Hx Alcohol Use: No Hx Substance Use: No Preferred Language: Belarusian Communication Ability: Effective Mds Rn Required: No Beliefs That Will Affect Care: None Current Living Situation: Spouse Other Information That Helps Us Care for You: No Feels Safe at Home: Yes Safety Concerns: Feels Safe At This Time Review of Systems Review of Systems: All systems reviewed & are unremarkable except as noted in HPI & below Physical Exam Physical Exam: General- Not in distress. Head- atraumatic Eyes- PERRL. ENT- oropharynx clear Neck- supple, no JVD. Lungs- clear to auscultation no wheezing or crackles. Heart- regular rhythm; no murmur, no gallop Abdomen- normal bowel sounds, soft, mild right sided discomfort no distension. Extremities- no pretibial edema, no erythema seen. Neuro- alert, oriented x 3; PERRL, no facial palsy; no dysarthria; moves extremities. Skin- warm & dry Results & Data Results & Data Vital Signs (Past 12 Hours) Vital Signs Temp Pulse Pulse Resp BP BP Pulse Ox 05/15/23 19:19 65 20 99/59 L 97 05/15/23 17:02 79 18 122/66 97 05/15/23 15:04 36.3 C L 82 18 122/78 100 O2 Del Method 05/15/23 19:19 Room Air 05/15/23 17:02 05/15/23 15:04 Room Air Diagnostic Findings Laboratory Results WBC 15.70 K/ul (4.8-10.8) H 05/15/23 15:13 RBC 5.48 M/uL (4.70-6.10) 05/15/23 15:13 Hgb 17.0 g/dl (14.0-18.0) 05/15/23 15:13 Hct 46.3 % (42.0-52.0) 05/15/23 15:13 MCV 84.5 fL (80.0-100.0) 05/15/23 15:13 MCH 31.0 pg (25.0-34.0) 05/15/23 15:13 MCHC 36.7 g/dL (32.0-36.0) H 05/15/23 15:13 RDW Std Deviation 35.1 fL (36.4-46.3) L 05/15/23 15:13 RDW Coeff of Kat 11.6 % (11.5-14.5) 05/15/23 15:13 Plt Count 211 K/uL (130-400) 05/15/23 15:13 MPV 9.0 fL (9.4-12.4) L 05/15/23 15:13 Immature Gran % (Auto) 0.8 % 05/15/23 15:13 Neut % (Auto) 93.4 % 05/15/23 15:13 Lymph % (Auto) 2.1 % 05/15/23 15:13 Mcdonald % (Auto) 3.3 % 05/15/23 15:13 Eos % (Auto) 0.1 % 05/15/23 15:13 Baso % (Auto) 0.3 % 05/15/23 15:13 Neut # (Auto) 14.67 K/uL (1.40-6.50) H 05/15/23 15:13 Lymph # (Auto) 0.33 K/uL (1.20-3.40) L 05/15/23 15:13 Mcdonald # (Auto) 0.52 K/uL (0.11-0.59) 05/15/23 15:13 Eos # (Auto) 0.01 K/uL (0.00-0.50) 05/15/23 15:13 Baso # (Auto) 0.04 K/uL (0.00-0.20) 05/15/23 15:13 Immature Gran # (Auto) 0.13 K/uL (0.01-0.20) 05/15/23 15:13 Sodium 142 mmol/L (136-145) 05/15/23 15:13 Potassium 3.5 mmol/L (3.5-5.1) 05/15/23 15:13 Chloride 105 mmol/L (98-107) 05/15/23 15:13 Carbon Dioxide 26 mmol/L (21-32) 05/15/23 15:13 Anion Gap 11 (3-11) 05/15/23 15:13 BUN 17 mg/dl (6-23) 05/15/23 15:13 Creatinine 0.72 mg/dl (0.6-1.4) 05/15/23 15:13 Est Cr Clr Drug Dosing 177.7 ml/min 05/15/23 15:13 Est GFR ( Amer) 144.1 ml/min 05/15/23 15:13 Est GFR (Non-Af Amer) 124.3 ml/min 05/15/23 15:13 BUN/Creatinine Ratio 23.6 (10-20) H 05/15/23 15:13 Glucose 133 mg/dl (70-99(Fasting)) H 05/15/23 15:13 Calcium 9.5 mg/dl (8.6-10.3) 05/15/23 15:13 Total Bilirubin 1.5 mg/dl (0.2-1.0) H 05/15/23 15:13 AST 22 U/L (13-39) 05/15/23 15:13 ALT 20 U/L (7-52) 05/15/23 15:13 Alkaline Phosphatase 63 U/L (34-104) 05/15/23 15:13 Total Protein 7.6 gm/dl (6.0-8.3) 05/15/23 15:13 Albumin 4.9 gm/dl (3.4-5.0) 05/15/23 15:13 Globulin 2.7 gm/dl (2.5-4.0) 05/15/23 15:13 Albumin/Globulin Ratio 1.8 (0.9-2) 05/15/23 15:13 Lipase 12 U/L (11-82) 05/15/23 15:13 Urine Color Dark Yellow 05/15/23 13:11 Urine Appearance Slightly Cloudy (Clear) 05/15/23 13:11 Urine pH 5.5 (4.5-7.5) 05/15/23 13:11 Ur Specific [place] >= 1.030 (1.000-1.030) 05/15/23 13:11 Urine Protein 1+ (Negative) H 05/15/23 13:11 Urine Glucose (UA) Negative (Negative) 05/15/23 13:11 Urine Ketones 3+ (Negative) H 05/15/23 13:11 Urine Blood Negative (Negative) 05/15/23 13:11 Urine Nitrite Negative (Negative) 05/15/23 13:11 Urine Bilirubin 1+ (Negative) H 05/15/23 13:11 Urine Urobilinogen Negative (Negative) 05/15/23 13:11 Ur Leukocyte Esterase Negative (Negative) 05/15/23 13:11 Urine RBC 0-4 /hpf (0-4) 05/15/23 13:11 Urine WBC 0-5 /hpf (0-5) 05/15/23 13:11 Ur Epithelial Cells 0-5 /lpf (0-5) 05/15/23 13:11 Urine Bacteria Negative (Negative) 05/15/23 13:11 Hyaline Casts 0-5 /lpf (0-5) 05/15/23 13:11 SARS-CoV-2 (PCR) NEGATIVE (Negative) 05/15/23 Unknown Influenza Type A (PCR) Negative (Neg) 05/15/23 Unknown Influenza Type B (PCR) Negative (Neg) 05/15/23 Unknown RSV (RT-PCR) Negative (Neg) 05/15/23 Unknown Impressions Abdomen/Pelvis CT 05/15/23 15:31 CT abd pelvis IV con only CLINICAL HISTORY: RLQ abdominal pain TECHNIQUE: Helical axial images of the abdomen and pelvis were obtained and displayed. Automated dose lowering techniques and/or adjustment according to patient size were utilized for this exam. This exam was performed with intravenous contrast. CT DOSE: 1286.46 mGy.cm COMPARISON: None available at the time of this dictation. FINDINGS: Lower chest: No acute abnormality. Liver: Unremarkable. No focal lesions are seen. Gallbladder and biliary tree: No calcified gallstones. Normal caliber wall. No intra- or extrahepatic biliary ductal dilation. Pancreas: Unremarkable, no focal lesions. Spleen: Unremarkable. Adrenals: Unremarkable. Kidneys and ureters: Unremarkable. Bladder: Unremarkable. Reproductive organs: Unremarkable. Bowel: The appendix is normal. A hiatal hernia is seen. Lymph nodes Retroperitoneal: Unremarkable. Pelvic: Unremarkable. Mesenteric: Unremarkable. Peritoneum: Normal. Vessels: Unremarkable. Abdominal wall: Unremarkable. Bones: Unremarkable. IMPRESSION: No acute abnormality, in particular the appendix is unremarkable. ACT 112: Negative or not required by law. Electronically signed by: Triston Mathias M.D. 05/15/2023 4:54 PM Gallbladder Ultrasound 05/15/23 16:59 US gallbladder CLINICAL HISTORY: RUQ abdominal pain, leukocytosis TECHNIQUE: Multiple real-time sonographic images of the right upper quadrant were obtained. Comparison: Comparison is made to CT abdomen pelvis 05/15/2023 FINDINGS: The liver is diffusely homogenous with normal contour and echogenicity. No focal mass lesions are seen. No intrahepatic ductal dilatation is seen. No gallstones or sludge are identified within the gallbladder. The gallbladder wall is not thickened. There is no pericholecystic fluid present. A sonographic Briseno's sign was not elicited by the brim edge trimmer. The common duct measures 0.5 cm in diameter at the level of the hepatic artery. The visualized portions of the pancreas appear normal. The right kidney shows normal echogenicity, cortical thickness and renal contour. The right kidney shows no evidence of hydronephrosis or mass. No ascites or free fluid is seen in Leiva's pouch. IMPRESSION: Unremarkable right upper quadrant ultrasound. ACT 112: Negative or not required by law. Electronically signed by: Triston Mathias M.D. 05/15/2023 5:47 PM Chest X-Ray 05/15/23 17:01 XR chest 1V portable CLINICAL HISTORY: Sob, fever TECHNIQUE: Single frontal radiograph of the chest was obtained. Comparison: None available at the time of this dictation. FINDINGS: No lines and tubes are seen. The cardiomediastinal silhouette is normal. The lungs are clear. No evidence of pleural effusion or pneumothorax. IMPRESSION: No acute abnormalities and in particular no radiographic evidence of pneumonia. ACT 112: Negative or not required by law. Electronically signed by: Triston Mathias M.D. 05/15/2023 5:31 PM Code Status & VTE Plan VTE Prophylaxis Plan VTE Prophylaxis will be ordered: Yes (1) Abdominal pain Abdominal location: right upper quadrant Qualified Code(s): R10.11 - Right upper quadrant pain
[2023-05-15] MEDS ORDERED: HYDROmorphone INJ 0.5 MG/0.5 ML SYR IV PRN (22:23)
[2023-05-15] MEDS ORDERED: ACETAMINOPHEN 1,000 MG/100 ML VIAL IV PRN (22:23)
[2023-05-15] MEDS ORDERED: ONDANSETRON INJ 2 MG/ML 2 ML VIAL IV PRN (22:23)
[2023-05-15] MEDS: D5W AND NSS 1,000 ML IV SCH (22:40)
[2023-05-16 05:40] LABS: Basophils # (auto) 0.03 K/uL (0.00-0.20); Basophils % (auto) 0.4 %; Eosinophils # (auto) 0.01 K/uL (0.00-0.50); Eosinophils % (auto) 0.1 %; Hematocrit (blood only) 37.7 % (42.0-52.0); Hemoglobin 13.2 g/dl (14.0-18.0); Immature Granulocytes # (auto) 0.05 K/uL (0.01-0.20); Immature Granulocytes % (auto) 0.6 %; Lymphocytes # (auto) 0.88 K/uL (1.20-3.40); Lymphocytes % (auto) 10.8 %; Mean Corpuscular Hemoglobin 30.3 pg (25.0-34.0); Mean Corpuscular Volume 86.7 fL (80.0-100.0); Mean Platelet Volume 8.8 fL (9.4-12.4); Monocytes # (auto) 0.69 K/uL (0.11-0.59); Monocytes % (auto) 8.5 %; Neutrophils # (auto) 6.49 K/uL (1.40-6.50); Neutrophils % (auto) 79.6 %; Platelet Count 148 K/uL (130-400); RDW Coefficient of Variation 11.7 % (11.5-14.5); RDW Standard Deviation 36.9 fL (36.4-46.3); Red Blood Count 4.35 M/uL (4.70-6.10); White Blood Count 8.15 K/ul (4.8-10.8)
[2023-05-16 05:51] LABS: BUN Creatinine Ratio 15.6 (10-20); Creatinine Clr Calc Pharmacy 166.1 ml/min; Est GFR (African American) 140.1 ml/min; Est GFR (Non-African American) 120.9 ml/min; Magnesium 1.4 mg/dl (1.7-2.4); Potassium 3.4 mmol/L (3.5-5.1)
[2023-05-16 07:52] LABS: Albumin Level 3.5 gm/dl (3.4-5.0); Bilirubin Direct 0.2 mg/dl (0-0.2); Bilirubin,Total 0.9 mg/dl (0.2-1.0); Total Protein 5.6 gm/dl (6.0-8.3)
--- NOTE | 2023-05-16 08:05 | Surgery Progress Note ---
Date of Service May 16, 2023 Assessment & Plan (1) Leukocytosis: (2) Abdominal pain: Plan: Overall feels improved, continues with slightly milder flulike symptoms and decreased rectus muscle achiness. Remains afebrile remains afebrile and leukocytosis has resolved remains afebrile and leukocytosis has resolved likely due to dehydration. Continue with supportive care. May have sips of water and ice chips this am and then may advance diet to full liquids as tolerated. Apply warm compresses to sore abdominal muscles at least 4 times per day. May use Ibuprofen to help with inflammation. Will f/u stool studies if they can be collected due to ongoing diarrhea which for now seems to have resolved. Will follow up in the am for changes. Admission and Anticipated Discharge Date Admission Date: May 15, 2023 Subjective Patient says he feels improved. He admits to generalized body aches, says he did have a small amount of dry heaving overnight and continues to have less severe intermittent shakes and chills. He admits to decreased soreness of the right rectus muscle extending from its attachment at the ribs to the pelvic bone. He says he is starting to feel more hungry and feels dehydrated. He admits to passing flatus. Physical Exam Constitutional: healthy appearing; not ill appearing, not in distress and not diaphoretic Afebrile Respiratory: normal respiratory effort; no respiratory distress, no labored breathing and does not use accessory muscles Cardiovascular: Rate/Rhythm: regular rate; not tachycardic Gastrointestinal (Abdomen): Minimal along the lateral border of the right rectus muscle extending from the right upper to right lower quadrant. Abdomen is soft and nondistended. Results & Data Vital Signs (Past 12 Hours) Vital Signs Temp Pulse Resp BP Pulse Ox O2 Del Method 05/16/23 07:49 37.2 C 62 16 107/70 95 Room Air 05/15/23 21:40 Room Air 05/15/23 21:40 36.7 C 70 18 115/63 98 Room Air Laboratory Results WBC: 8.15 H/H: 13.2/37.7 from PG Care Time/CCT Total # of Minutes Spent Total Time Spent with Patient: Total time spent is greater than 50% in coordination of care (as documented) at patient's floor/unit and/or counseling patient: Coding Level of Care Code 84437 SUB INP/OBS CARE 05/31MIN Diagnoses Leukocytosis D72.829 Leukocytosis type: unspecified Right upper quadrant abdominal pain R10.11 Abdominal location: right upper quadrant (1) Leukocytosis Leukocytosis type: unspecified Qualified Code(s): D72.829 - Elevated white blood cell count, unspecified (2) Abdominal pain Abdominal location: right upper quadrant Qualified Code(s): R10.11 - Right upper quadrant pain
[2023-05-16] MEDS: POTASSIUM CHLORIDE / WTR 10 MEQ/100 ML PLCT IV SCH (08:08)
[2023-05-16] MEDS: MAGNESIUM SULFATE / D5W 1 GM/100 ML BAG IV SCH (08:20)
[2023-05-16] MEDS: KETOROLAC TROMETHAMINE 15 MG/ML VIAL IV ONE (09:31)
[2023-05-16 10:27] LABS: Amphetamines+Metham, Urine Neg (Neg); Barbiturates, Urine Neg (Neg); Benzodiazepine, Urine Neg (Neg); Cocaine, Urine Neg (Neg); MDMA (Ecstacy), Urine Neg (Neg); Marijuana, Urine Pos (Neg); Methadone, Urine Neg (Neg); Opiate, Urine Pos (Neg); Phencyclidine, Urine Neg (Neg)
--- NOTE | 2023-05-16 12:37 | Hospitalist Progress Note ---
Date of Service May 16, 2023 Assessment & Plan (1) Abdominal pain: Plan: 33-year-old male with past medical history significant for generalized anxiety disorder, medical marijuana use, presents with right-sided abdominal pain starting on day of admission. Patient states he woke up around 6 AM with severe right-sided abdominal pain thought it will subside but it has been constant since then. Pain is anywhere from 6-9/10 in severity. Radiating to his right groin region. Associated with several episodes of nausea and vomitings and diarrhea. No blood in the vomiting or stools. Right-sided abdominal pain Gastroenteritis Rectus abdominis strain from retching admitted to med/surg RUQ US: negative CT a/p: no acute abn General surgery on board - recommend hydration, adat follow stool studies but has yet to have a bowel movement ? if marijuana playing role as well, but denies any recreational use or recent dosage change give toradol 15mg IV x 1 for msk pain of abdomen K pad prn continue IVF until tolerating diet, add KCL to fluid likely d/c tomorrow if tolerates diet advancement Hypomagnesemia Hypokalemia likely 2/2 GI loss replace cbc, cmp, mag in a.m. DVT prophylaxis SCDs Disposition Medical floor, likely d/c in a.m. Full code Pt was seend and examined in collaboration with Dr. Campos, please see addendum A total of 57 was spent coordinating, documenting, and providing care for this patient excluding time spent in the performance of separately billed services. This included personally viewing all current laboratories and imaging studies, medication reconciliation, outpatient chart review, and discussion with specialists. Admission and Anticipated Discharge Date Admission Date: May 15, 2023 Supervising Physician Co-Signing Physician Notes Patient is seen and examined at bedside. Abdominal pain improved. Reports nausea but no vomiting today. No diarrhea today as well. On exam patient is moderately built and nourished, no apparent distress, normocephalic atraumatic, EOMI, normal breath sounds, clear to auscultation, S1-S2, no murmur, no pedal edema, abdomen soft, mild right upper quadrant abdominal tenderness, normal bowel sounds, alert, awake, oriented, grossly no focal deficits. Abdominal pain associated with nausea, vomiting, diarrhea likely gastroenteritis. Will obtain stool studies if recurrence of diarrhea. Imaging studies not contributory. Appreciate surgery input. Marijuana use likely contributing as well. Start on liquid diet and advance as tolerated. Replace electrolytes as needed. Counseled to quit marijuana use. I personally reviewed the record. Patient is interviewed and examined at bedside. Patient's care is coordinated with Dulce Cast PA-C. Please refer to the documentation above for details of patient's presentation and for discussion of other issues. Subjective Patient was seen and examined in 311. Follow-up abdominal pain and bloating. He feels his symptoms are improving and he starting to feel hungry. He states symptoms started abruptly at 6 AM and it woke him from his sleep. He describes a sharp right upper quadrant pain with associated nausea, vomiting and diaphoresis. He was doing some research and was concerned was appendicitis so came to ED. He continued to have abdominal discomfort and was seen and evaluated by general surgery. CT abdomen pelvis and right upper quadrant ultrasound was unremarkable. General surgery recommends advancing diet slowly. He also felt he was dehydrated and feels IV fluids has helped this. He does use medical marijuana and has not had a recent change in his dose or has not been abusing recreational marijuana. He has never had this with marijuana in the past. He denies fever, chills, sweats, lightheadedness, dizziness, chest pain, jan rtness of breath and URI symptoms. He was having diarrhea on day symptoms started but this is since resolved. No known sick contacts. ate similar food day prior and did not get sick. Review of Systems Review of Systems: All systems reviewed & are unremarkable except as noted in HPI & below Physical Exam Physical Exam: Gen: WD/WN, NAD, A&O x3 HEENT: Normocephalic, atraumatic, conjunctivae moist, sclerae anicteric, mucous membranes moist. Lung: Clear to Auscultation bilaterally, no wheezes/rales/rhonchi Heart: Regular rate, regular rhythm, no murmurs, rubs, or gallops Abdomen: Soft, NT, ND +BS x 4 Extremities: No edema Skin: Warm, no rash, negative turgor. Results & Data Results & Data Vital Signs (Past 12 Hours) Vital Signs Temp Pulse Resp BP Pulse Ox O2 Del Method 05/16/23 07:49 37.2 C 62 16 107/70 95 Room Air Laboratory Results Short CBC 05/15/23 05/16/23 Range/Units 15:13 05:18 WBC 15.70 H 8.15 (4.8-10.8) K/ul Hgb 17.0 13.2 L D (14.0-18.0) g/dl Hct 46.3 37.7 L (42.0-52.0) % Plt Count 211 148 (130-400) K/uL BMP 05/15/23 05/16/23 15:13 05:18 Sodium 142 142 Potassium 3.5 3.4 L Chloride 105 111 H Carbon Dioxide 26 26 BUN 17 12 Creatinine 0.72 0.77 Glucose 133 H 116 H Calcium 9.5 8.0 L Liver Function 05/15/23 05/16/23 Range/Units 15:13 05:18 Total Bilirubin 1.5 H 0.9 D (0.2-1.0) mg/dl Direct Bilirubin 0.2 (0-0.2) mg/dl AST 22 20 (13-39) U/L ALT 20 17 (7-52) U/L Alkaline Phosphatase 63 42 (34-104) U/L Albumin 4.9 3.5 (3.4-5.0) gm/dl Urine 05/15/23 Range/Units 13:11 Urine Color Dark Yellow Urine Appearance Slightly Cloudy (Clear) Urine pH 5.5 (4.5-7.5) Ur Specific [place] >= 1.030 (1.000-1.030) Urine Protein 1+ H (Negative) Urine Glucose (UA) Negative (Negative) I have independently reviewed and interpreted patient's labs including CBC, CMP, UDS Diagnostic Findings Abdomen/Pelvis CT 05/15/23 15:31 CT abd pelvis IV con only CLINICAL HISTORY: RLQ abdominal pain TECHNIQUE: Helical axial images of the abdomen and pelvis were obtained and displayed. Automated dose lowering techniques and/or adjustment according to patient size were utilized for this exam. This exam was performed with intravenous contrast. CT DOSE: 1286.46 mGy.cm COMPARISON: None available at the time of this dictation. FINDINGS: Lower chest: No acute abnormality. Liver: Unremarkable. No focal lesions are seen. Gallbladder and biliary tree: No calcified gallstones. Normal caliber wall. No intra- or extrahepatic biliary ductal dilation. Pancreas: Unremarkable, no focal lesions. Spleen: Unremarkable. Adrenals: Unremarkable. Kidneys and ureters: Unremarkable. Bladder: Unremarkable. Reproductive organs: Unremarkable. Bowel: The appendix is normal. A hiatal hernia is seen. Lymph nodes Retroperitoneal: Unremarkable. Pelvic: Unremarkable. Mesenteric: Unremarkable. Peritoneum: Normal. Vessels: Unremarkable. Abdominal wall: Unremarkable. Bones: Unremarkable. IMPRESSION: No acute abnormality, in particular the appendix is unremarkable. ACT 112: Negative or not required by law. Electronically signed by: Triston Mathias M.D. 05/15/2023 4:54 PM Gallbladder Ultrasound 05/15/23 16:59 US gallbladder CLINICAL HISTORY: RUQ abdominal pain, leukocytosis TECHNIQUE: Multiple real-time sonographic images of the right upper quadrant were obtained. Comparison: Comparison is made to CT abdomen pelvis 05/15/2023 FINDINGS: The liver is diffusely homogenous with normal contour and echogenicity. No focal mass lesions are seen. No intrahepatic ductal dilatation is seen. No gallstones or sludge are identified within the gallbladder. The gallbladder wall is not thickened. There is no pericholecystic fluid present. A sonographic Briseno's sign was not elicited by the ham clerk. The common duct measures 0.5 cm in diameter at the level of the hepatic artery. The visualized portions of the pancreas appear normal. The right kidney shows normal echogenicity, cortical thickness and renal contour. The right kidney shows no evidence of hydronephrosis or mass. No ascites or free fluid is seen in Leiva's pouch. IMPRESSION: Unremarkable right upper quadrant ultrasound. ACT 112: Negative or not required by law. Electronically signed by: Triston Mathias M.D. 05/15/2023 5:47 PM Chest X-Ray 05/15/23 17:01 XR chest 1V portable CLINICAL HISTORY: Sob, fever TECHNIQUE: Single frontal radiograph of the chest was obtained. Comparison: None available at the time of this dictation. FINDINGS: No lines and tubes are seen. The cardiomediastinal silhouette is normal. The lungs are clear. No evidence of pleural effusion or pneumothorax. IMPRESSION: No acute abnormalities and in particular no radiographic evidence of pneumonia. ACT 112: Negative or not required by law. Electronically signed by: Triston Mathias M.D. 05/15/2023 5:31 PM Medications Administered Current Inpatient Medications Hydromorphone HCl (Hydromorphone Inj 0.5 Mg/0.5 Ml Syr) 0.5 mg IV Q4H PRN PRN Reason: Severe Pain (Scale 7, 8, 9,10) Stop: 05/29/23 22:22 Dextrose/Sodium Chloride (D5w And Nss) 1,000 mls @ 125 mls/hr IV .Q8H TANVI Stop: 06/14/23 22:22 Last Admin: 05/16/23 07:45 Dose: 125 mls/hr Acetaminophen (Ofirmev) 1,000 mg in 100 mls @ 400 mls/hr IV Q8H PRN PRN Reason: Pain or Fever Stop: 05/18/23 22:22 Ondansetron HCl (Ondansetron Inj 2 Mg/Ml 2 Ml Vial) 4 mg IV Q6H PRN PRN Reason: Nausea Stop: 06/14/23 22:22 (1) Abdominal pain Abdominal location: right upper quadrant Qualified Code(s): R10.11 - Right upper quadrant pain
[2023-05-16] MEDS ORDERED: KETOROLAC TROMETHAMINE 15 MG/ML VIAL IV PRN (12:47)
[2023-05-16] MEDS ORDERED: POTASSIUM CHLORIDE 20 MEQ in D5W AND NSS 1,000 ML IV SCH (12:49)
[2023-05-16] MEDS: D5NSS + 20MEQ KCL 20 MEQ/1,000 ML BAG IV SCH ×2 (13:37→20:51)
[2023-05-16 22:38] LABS: Adenovirus F 40/41 PCR Not Detected (NotDetected); Astrovirus PCR Not Detected (NotDetected); Campylobacter PCR Not Detected (NotDetected); Cryptosporidium PCR Not Detected (NotDetected); Cyclospora cayetanensis PCR Not Detected (NotDetected); Entamoeba histolytica PCR Not Detected (NotDetected); Enteroaggregative E.coli(EAEC) Not Detected (NotDetected); Enteropathogenic E.coli (EPEC) Not Detected (NotDetected); Enterotoxigenic E.coli (ETEC) Not Detected (NotDetected); Giardia lamblia PCR Not Detected (NotDetected); Plesiomonas shigelloides PCR Not Detected (NotDetected); Rotavirus A PCR Not Detected (NotDetected); Salmonella PCR Not Detected (NotDetected); Sapovirus PCR Not Detected (NotDetected); Shiga-like Toxin E.coli (STEC) Not Detected (NotDetected); Shigella/Enteroinvasive E.coli Not Detected (NotDetected); Vibrio cholerae PCR Not Detected (NotDetected); Vibrio species PCR Not Detected (NotDetected); Yersinia enterocolitica PCR Not Detected (NotDetected)
[2023-05-16 22:45] LABS: Norovirus GI/GII PCR DETECTED (NotDetected)
[2023-05-17 06:15] LABS: Basophils # (auto) 0.04 K/uL (0.00-0.20); Basophils % (auto) 0.6 %; Eosinophils # (auto) 0.13 K/uL (0.00-0.50); Eosinophils % (auto) 2.1 %; Hematocrit (blood only) 35.4 % (42.0-52.0); Hemoglobin 12.3 g/dl (14.0-18.0); Immature Granulocytes # (auto) 0.04 K/uL (0.01-0.20); Immature Granulocytes % (auto) 0.6 %; Lymphocytes # (auto) 1.92 K/uL (1.20-3.40); Lymphocytes % (auto) 30.5 %; Mean Corpuscular Hemoglobin 30.4 pg (25.0-34.0); Mean Corpuscular Hgb Conc 34.7 g/dL (32.0-36.0); Mean Corpuscular Volume 87.6 fL (80.0-100.0); Mean Platelet Volume 9.3 fL (9.4-12.4); Monocytes # (auto) 0.78 K/uL (0.11-0.59); Monocytes % (auto) 12.4 %; Neutrophils # (auto) 3.39 K/uL (1.40-6.50); Neutrophils % (auto) 53.8 %; Platelet Count 148 K/uL (130-400); RDW Coefficient of Variation 11.8 % (11.5-14.5); RDW Standard Deviation 38.1 fL (36.4-46.3); Red Blood Count 4.04 M/uL (4.70-6.10)
[2023-05-17 06:41] LABS: Albumin Globulin Ratio 1.7 (0.9-2); Albumin Level 3.4 gm/dl (3.4-5.0); BUN Creatinine Ratio 8.5 (10-20); Bilirubin,Total 0.6 mg/dl (0.2-1.0); Creatinine Clr Calc Pharmacy 180.2 ml/min; Est GFR (African American) 144.9 ml/min; Magnesium 1.7 mg/dl (1.7-2.4); Potassium 3.7 mmol/L (3.5-5.1); Total Protein 5.4 gm/dl (6.0-8.3)
--- NOTE | 2023-05-17 10:43 | Discharge Summary ---
Discharge Summary Date of Service May 17, 2023 Notes For Next Care Provider Pt admitted for gastroenteritis. Tested positive for norovirus. Improved with supportive care, IV hydration. Electrolytes replaced with magnesium and potassium. Medication Changes From Visit None Admission HPI Per Admitting Provider 33-year-old male with past medical history significant for generalized anxiety disorder, medical marijuana use, presents with right-sided abdominal pain starting today morning. Patient states he woke up around 6 AM with severe right-sided abdominal pain thought it will subside but it has been constant since then. Pain is anywhere from 6-9/10 in severity. Radiating to his right groin region. Associated with several episodes of nausea and vomitings and diarrhea. No blood in the vomiting or stools. Also had temperature. Having shaking chills. Has some headache. Has mild congestion and cough. No chest pain.Not able to take deep breath because of pain. Did not eat any outside food. Past medical history. As mentioned above Past surgical history. Colonoscopy. Right partial palmar fasciectomy. Right repair of extensor tendon. Social history. No smoking. Alcohol occasional. No drug use. Family history. Father has IBS. Sister has IBS. Admission Exam Per Admitting Provider General- Not in distress. Head- atraumatic Eyes- PERRL. ENT- oropharynx clear Neck- supple, no JVD. Lungs- clear to auscultation no wheezing or crackles. Heart- regular rhythm; no murmur, no gallop Abdomen- normal bowel sounds, soft, mild right sided discomfort no distension. Extremities- no pretibial edema, no erythema seen. Neuro- alert, oriented x 3; PERRL, no facial palsy; no dysarthria; moves extremities. Skin- warm & dry Principal Dx & Hospital Course #1 = Principal Diagnosis (1) Abdominal pain: 33-year-old male with past medical history significant for generalized anxiety disorder, medical marijuana use, presents with right-sided abdominal pain starting on day of admission. Patient states he woke up around 6 AM with severe right-sided abdominal pain thought it will subside but it has been constant since then. Pain is anywhere from 6-9/10 in severity. Radiating to his right groin region. Associated with several episodes of nausea and vomiting and diarrhea. No blood in the vomiting or stools. Patient was found to have dehydration, hypokalemia and hypomagnesemia. He received supportive care, IV fluids and electrolyte replacement. Stool study positive for norovirus. On day of discharge his abdominal pain had resolved. He has been using heat and anti- inflammatories which significant improvement. His abdominal pain likely secondary to musculoskeletal from retching. He is slowly advancing diet and is encouraged to continue to go slow and utilize brat diet until completely feeling better. He was hemodynamically stable on day of discharge. On day of discharge his H&H was 12.3 and 35.4. On admission it was 17. This is likely secondary to dilution. His potassium and magnesium have normalized. He will be discharged home with close PCP follow-up. Discharge Exam Gen: WD/WN, NAD, A&O x3 HEENT: Normocephalic, atraumatic, conjunctivae moist, sclerae anicteric, mucous membranes moist. Lung: Clear to Auscultation bilaterally, no wheezes/rales/rhonchi Heart: Regular rate, regular rhythm, no murmurs, rubs, or gallops Abdomen: Soft, NT, ND +BS x 4 Extremities: No edema Skin: Warm, no rash, negative turgor. Updated Medication List Medication Instructions Recorded Confirmed Type Medical Marijuana 1 dose inhalation DIRECTED PRN 05/15/23 05/15/23 History NEEDED PER PT Hospital Stay Data Consultations 05/15/23 19:27 ED Decision to Admit Stat 05/15/23 22:23 Consult General Surgery Routine Diagnostic Imagining Performed Abdomen/Pelvis CT 05/15/23 15:31 CT abd pelvis IV con only CLINICAL HISTORY: RLQ abdominal pain TECHNIQUE: Helical axial images of the abdomen and pelvis were obtained and displayed. Automated dose lowering techniques and/or adjustment according to patient size were utilized for this exam. This exam was performed with intravenous contrast. CT DOSE: 1286.46 mGy.cm COMPARISON: None available at the time of this dictation. FINDINGS: Lower chest: No acute abnormality. Liver: Unremarkable. No focal lesions are seen. Gallbladder and biliary tree: No calcified gallstones. Normal caliber wall. No intra- or extrahepatic biliary ductal dilation. Pancreas: Unremarkable, no focal lesions. Spleen: Unremarkable. Adrenals: Unremarkable. Kidneys and ureters: Unremarkable. Bladder: Unremarkable. Reproductive organs: Unremarkable. Bowel: The appendix is normal. A hiatal hernia is seen. Lymph nodes Retroperitoneal: Unremarkable. Pelvic: Unremarkable. Mesenteric: Unremarkable. Peritoneum: Normal. Vessels: Unremarkable. Abdominal wall: Unremarkable. Bones: Unremarkable. IMPRESSION: No acute abnormality, in particular the appendix is unremarkable. ACT 112: Negative or not required by law. Electronically signed by: Triston Mathias M.D. 05/15/2023 4:54 PM Gallbladder Ultrasound 05/15/23 16:59 US gallbladder CLINICAL HISTORY: RUQ abdominal pain, leukocytosis TECHNIQUE: Multiple real-time sonographic images of the right upper quadrant were obtained. Comparison: Comparison is made to CT abdomen pelvis 05/15/2023 FINDINGS: The liver is diffusely homogenous with normal contour and echogenicity. No focal mass lesions are seen. No intrahepatic ductal dilatation is seen. No gallstones or sludge are identified within the gallbladder. The gallbladder wall is not thickened. There is no pericholecystic fluid present. A sonographic Briseno's sign was not elicited by the quarry plant crusher operator. The common duct measures 0.5 cm in diameter at the level of the hepatic artery. The visualized portions of the pancreas appear normal. The right kidney shows normal echogenicity, cortical thickness and renal contour. The right kidney shows no evidence of hydronephrosis or mass. No ascites or free fluid is seen in Leiva's pouch. IMPRESSION: Unremarkable right upper quadrant ultrasound. ACT 112: Negative or not required by law. Electronically signed by: Triston Mathias M.D. 05/15/2023 5:47 PM Chest X-Ray 05/15/23 17:01 XR chest 1V portable CLINICAL HISTORY: Sob, fever TECHNIQUE: Single frontal radiograph of the chest was obtained. Comparison: None available at the time of this dictation. FINDINGS: No lines and tubes are seen. The cardiomediastinal silhouette is normal. The lungs are clear. No evidence of pleural effusion or pneumothorax. IMPRESSION: No acute abnormalities and in particular no radiographic evidence of pneumonia. ACT 112: Negative or not required by law. Electronically signed by: Triston Mathias M.D. 05/15/2023 5:31 PM Pending Results Patient Have Any Pending Studies at Discharge: No Discharge Instructions Given to Patient (Per Discharging Provider) MEDICATION CHANGES: No medication changes. You may continue to utilize over the counter Tylenol and over the counter Ibuprofen for abdominal discomfort. SUMMARY OF TEST RESULTS: You tested positive for a viral infection known as, Norovirus. This is the cause of your nausea, vomiting and diarrhea. PENDING TEST RESULTS: None RECOMMENDATIONS FOR FOLLOW-UP: Please follow up with your Primary Care Provider as scheduled. You electrolytes have all been replaced and you are no longer dehydrated. Recommend continue with fluid intake and continue diet as tolerated. Recommend BRAT diet until symptoms completely resolve. Recommend to limit use of medical marijuana if able as sometimes this can cause vomiting. OTHER INSTRUCTIONS: Seek medical attention if you have: * temperature above 101 * chest pain or trouble breathing * abdominal pain, nausea, vomiting * diarrhea, dark stools or bloody stools * any unanswered questions or concerns Call 911 if symptoms are severe. Please take good care of yourself. It has been a pleasure taking care of you. Please take care of yourself. If you have any questions regarding your recent hospitalization please contact [facility] and request Luna Delgadillo @ [phone]. Dulce Cast PA-C Total Time Total Time Spent Total Time Spent (In Minutes): 35 minutes Supervising Physician Co-Signing Physician Notes Patient is seen and examined at bedside. Nausea, vomiting resolved. Abdominal pain much improved. Tolerating liquid diet. No new complaints. On exam patient is moderately built and nourished, no apparent distress, normocephalic atraumatic, EOMI, normal breath sounds, clear to auscultation, S1-S2, no murmur, no pedal edema, abdomen soft, non tender, normal bowel sounds, alert, awake, oriented, grossly no focal deficits. Acute Gastroenteritis:stool studies positive for Norovirus. Imaging studies not contributory. Appreciate surgery input. Received IV fluids. Advance diet as tolerated. Conservative management. Advised to minimize or quit marijuana use. Replace electrolytes as needed. I personally reviewed the record. Patient is interviewed and examined at bedside. Patient's care is coordinated with Dulce Cast PA-C. Please refer to the documentation above for details of patient's presentation and for discussion of other issues.
--- NOTE | 2023-05-17 10:59 | Surgery Progress Note ---
<Statement entered by Royce Werner DO - 05/17/23 21:57> I have seen and examined this patient with the surgical PA. I agree with this plan. Date of Service May 17, 2023 Assessment & Plan (1) Abdominal pain: Plan: Pt here with R sided abdominal pain per pt consistent with pain 2/2 sports hernia he has since been found to be + for norovirus and having diarrhea/chills. abdominal pain improving denies nausea/vomiting. tolerating clears hospitalists planning on discharge today continue heat and nsaids/tylenol as needed for abd pain Admission and Anticipated Discharge Date Admission Date: May 15, 2023 Subjective Patient feeling a bit better, but still with some intermittent chills. Having + diarrhea. Abdominal pain improving. Physical Exam Physical Exam: awake/alert, no distress Gastrointestinal (Abdomen): Percussion/Palpation: + abdomen tender (mild discomfort along R rectus muscle) and abdomen soft; no guarding Results & Data Vital Signs (Past 12 Hours) Vital Signs Temp Pulse Resp BP Pulse Ox O2 Del Method 05/17/23 09:02 37.1 C 64 17 113/73 97 Room Air PG Care Time/CCT Total # of Minutes Spent Total Time Spent with Patient: Total time spent is greater than 50% in coordination of care (as documented) at patient's floor/unit and/or counseling patient: Coding Level of Care Code 66923 SUB INP/OBS CARE 1/25MIN Diagnoses Right upper quadrant abdominal pain R10.11 Abdominal location: right upper quadrant (1) Abdominal pain Abdominal location: right upper quadrant Qualified Code(s): R10.11 - Right upper quadrant pain
[2023-05-18 15:53] LABS: Codeine Urine NEGATIVE ng/mL (<50); Hydrocodone Urine NEGATIVE ng/mL (<50); Hydromor Urine NEGATIVE ng/mL (<50); Marijuana Quant, GCMS Urine >5000 ng/mL (<5); Morphine Urine NEGATIVE ng/mL (<50); Norhydrocodone Conf Ur NEGATIVE ng/mL (<50); Noroxycodone Urine NEGATIVE ng/mL (<50); Oxycodone Urine NEGATIVE ng/mL (<50); Oxymorph Urine NEGATIVE ng/mL (<50)
== END 2023-05-17 13:58 | disposition home or self-care (01) | DRG 392 ==
LOC: ED 15:02 → INTOOBSV 20:24 → 3E 20:24